=== PATIENT | male | born 1980 | race Caucasian/White ===

== ENCOUNTER 2020-12-15 02:04 | Emergency (ER) | payer SELFPAY ==
[2020-12-15] MEDS ORDERED: Dexamethasone 4 MG TAB ONE (03:21)
[2020-12-15] MEDS ORDERED: Ketorolac Tromethamine 15 MG/ML VIAL ONE (03:21)
== END 2020-12-15 04:00 | disposition home or self-care (01) ==
LOC: CSHERS 02:04
DX: J02.9 Acute pharyngitis, unspecified (principal)
CPT/HCPCS: 96372; 99282; J1885; J8540

== ENCOUNTER 2022-07-20 02:58 | Emergency (ER) | payer SELFPAY ==
[2022-07-20] MEDS ORDERED: Lidocaine Viscous Sol 2% 15 ml UD Cup SSP SCH (04:15)
== END 2022-07-20 04:23 | disposition home or self-care (01) ==
LOC: CSHERS 02:58
DX: K02.9 Dental caries, unspecified (principal); F17.210 Nicotine dependence, cigarettes, uncomplicated
CPT/HCPCS: 99282

== ENCOUNTER 2023-03-17 01:23 | Emergency (ER) | payer SELFPAY ==
[2023-03-17] MEDS ORDERED: Dexamethasone 4 mg/ml Vial ONE (01:49)
[2023-03-17] MEDS ORDERED: Orphenadrine Citrate 60 MG/2 ML VIAL ONE (01:49)
== END 2023-03-17 02:35 | disposition home or self-care (01) ==
LOC: CSHERS 01:23
DX: M25.462 Effusion, left knee (principal); M62.838 Other muscle spasm; F17.210 Nicotine dependence, cigarettes, uncomplicated
CPT/HCPCS: 96372; 99283; J1100; J2360